=== PATIENT | female | born 1950 | race Caucasian/White ===

== ENCOUNTER 2016-08-03 23:20 | Emergency (ER) | payer OTHER ==
[2016-08-03 23:57] LABS: MANUAL DIFF NEEDED? NO
[2016-08-04 00:01] LABS: BASO% 0.6 % (0.0-0.8); EOS# 0.08 X1000 (0.0-0.7); EOS% 1.3 % (0.0-10.0); HEMATOCRIT 39.2 % (37.0-47.0); HEMOGLOBIN 13.6 g/dL (12.0-16.0); IMM GRAN# 0.02 X1000 (0.0-0.04); IMM GRAN% 0.3 % (0.0-0.5); LYMPH# 1.02 X1000 (1.2-3.4); MCH 30.1 PG (27-31); MCHC 34.7 g/dL (33-37); MCV 86.7 FL (81-99); MONO# 0.56 X1000 (0.11-0.59); MONO% 8.8 % (1.7-9.3); MPV 10.3 FL (7.4-10.4); PLT 318 X1000 (130-400); RBC 4.52 XMIL (4.2-5.4)
[2016-08-04] MEDS ORDERED: ROCEPHIN IM ONE (00:16)
[2016-08-04] MEDS ORDERED: XYLOCAINE-MPF 1% INJ ONE (00:16)
[2016-08-04] MEDS ORDERED: DUONEB (A & A) INH ONE (00:16)
[2016-08-04 00:27] LABS: AGAP 17; ALBUMIN 4.7 g/dL (3.5-5.0); ALKALINE PHOSPHATASE 91 U/L (32-104); BUN 11 mg/dL (8-22); CALCIUM 8.8 mg/dL (8.8-10.2); CHLORIDE 97 mmol/L (98-107); COSMO 277; GOT 21 U/L (10-30); GPT 23 U/L (10-36); MAGNESIUM 2.2 mg/dL (1.5-2.7); POTASSIUM 3.4 mmol/L (3.5-5.1); SODIUM 138 mmol/L (136-145); TCO2 24 mmol/L (25-35); TOTAL BILIRUBIN 0.32 mg/dL (0.20-1.00); TOTAL PROTEIN 7.9 g/dL (6.3-8.3)
[2016-08-04] MEDS ORDERED: DECADRON IM ONE (00:36)
--- NOTE | 2016-08-04 00:40 | PROVIDER DOCUMENTATION ---
HPI-Respiratory General - General Chief Complaint: General Adult Stated Complaint: COUGH, CONGESTION Time Seen by Provider: 08/03/16 23:56 Source: patient Allergies/Adverse Reactions: Patient Allergies Allergy/AdvReac Type Severity Reaction Status Date / Time Sulfa (Sulfonamide Allergy HIVES Verified 08/03/16 23:32 Antibiotics) Home Medications: Home Medication List Medication Instructions Recorded Confirmed Last Taken Type Atorvastatin Calcium [Lipitor] 20 mg PO HS 08/03/16 08/03/16 08/03/16 20:00 History Benazepril/Hydrochlorothiazide 1 tab PO DAILY 08/03/16 08/03/16 08/03/16 20:00 History [Benazepril-Hctz 10-12.5 mg Tab] Albuterol Sulfate [Albuterol 18 gm IH 3-4XDAY PRN PRN #1 08/04/16 Unknown Rx Sulfate Hfa] hfa.[email or web address] Levofloxacin [Levaquin] 750 mg PO DAILY #7 tablet 08/04/16 Unknown Rx Methylprednisolone [Medrol Dosepak] 4 mg PO DIRECTED #1 package 08/04/16 Unknown Rx - History of Present Illness-Resp Nature of Presenting Problem: Pt is a 66 yof who presents to ER with CC of cough and congestion that started yesterday. Pt reports that it became significantly worse today and when she would cough, it felt as though her throat was closing.Pt also complains of post- nasal drip. Quality of Pain: reports: none Severity in ED: reports: moderate Onset/Duration: reports: 24 hours ago Timing: reports: still present, getting worse Cough Quality/Degree: reports: mild Associated Symptoms: reports: cough, hurts to breathe, nasal drainage, shortness of breath, sinus pain, short of breath, sore throat. denies: chest pain/soreness, sweaty, wheezing Review of Systems - Adult - REVIEW OF SYSTEMS - ADULT Constitutional: denies: chills, fever, fatique, night sweats, weight gain, weight loss Eyes: reports: no symptoms reported Ears, Nose, Mouth & Throat: reports: sinus problem (nasal drip), throat pain. denies: ear discharge, ear pain, nose pain, loose teeth, hoarseness, throat swelling Cardiovascular: denies: chest pain, edema, heart murmur, irregular heart rate, orthopnea, palpitations, poor circulation, PND, syncope Respiratory: reports: cough, dyspnea on exertion, shortness of breath, wheezing . denies: excessive sputum production, hemoptysis, pleurisy Gastrointestinal: reports: no symptoms reported Genitourinary: reports: no symptoms reported Musculoskeletal: reports: no symptoms reported Integumentary: reports: no symptoms reported Neurological: reports: no symptoms reported Psychiatric: reports: no symptoms reported Endocrine: reports: no symptoms reported Hematologic/Lymphatic: reports: no symptoms reported Allergic/Immunologic: reports: no symptoms reported All Other Systems: Reviewed and Negative Past History - Adult - PAST MEDICAL HISTORY-ADULT Review of Records: reports: Nursing Assessment Review, Medications Reviewed - IMMUNIZATION STATUS Childhood Immunizations: See Nurse Assessment Flu Vaccine: See Nurse Assessment Physical Exam-General - PHYSICAL EXAM-ADULT Initial Vital Signs Reviewed: Yes - CONSTITUTIONAL General Appearance: appears well, alert, mild distress. negative: no apparent distress, cachetic, obese, thin, anxious, lethargic, slow to respond, obtunded, combative - HEAD, EARS, NOSE, MOUTH & THROAT HENMT: pharyngeal erythema, other (post-nasal drip). negative: pharynx normal, tonsillar exudate - RESPIRATORY Respiratory: chest non-tender, lungs clear, normal breath sounds. negative: respiratory distress, decreased breath sounds, wheezing - CARDIOVASCULAR Cardiovascular: normal peripheral pulses, regular rate, rhythm. negative: bradycardia, tachycardia, irregularly irregular - LYMPHATIC Lymphatic: no adenopathy. negative: axilla node tender, cervical node tenderness, inguinal node tender - NEUROLOGIC Neurologic: grossly normal, no motor/sensory deficits - PSYCHIATRIC Psych/Mental Status: normal mood/affect, normal thought content, normal thought process, oriented x 3 Progress - PLAN OF CARE/RESULTS Progress/Plan/Lab Results: Vital Signs - 24 hr 08/03/16 23:26 Temperature 100.4 F H Pulse Rate 113 H Respiratory 24 Rate Blood Pressure 183/67 O2 Sat by Pulse 99 Oximetry Orders Category Date Time Status cxr [CHEST-2 VIEWS] [RAD] Stat Exams 08/03/16 23:38 Taken BLOOD CULTURE [BLDCUL] Stat Lab 08/03/16 23:55 Ordered CBC WITH ELECTRONIC DIFF [HEME] Stat Lab 08/03/16 23:39 Completed CMP [COMPREHENSIVE METABOLIC PANEL] [CHEM] Stat Lab 08/03/16 23:39 Completed Flu Swab [INFLUENZA SCREEN A/B] Stat Lab 08/03/16 23:39 Completed MAGNESIUM [CHEM] Stat Lab 08/03/16 23:39 Completed PTT [COAG] Stat Lab 08/04/16 00:07 Ordered Strep [DIRECT STREP] Stat Lab 08/04/16 00:25 Received TROPONIN T Stat Lab 08/03/16 23:39 Completed URINALYSIS [URINALYSIS] Stat Lab 08/03/16 23:55 Uncollected Albuterol 2.5MG/Ipratrop 0.5MG [Duoneb (A & A)] Med 08/04/16 00:16 Discontinued 3 ml INH NOW ONE CefTRIAXONE [Rocephin] Med 08/04/16 00:16 Discontinued 1 gm IM NOW ONE Dexamethasone [Decadron] Med 08/04/16 00:36 Discontinued 10 mg IM NOW ONE Lidocaine 1% Pf [Xylocaine-Mpf 1%] Med 08/04/16 00:16 Discontinued 5 ml INJ NOW ONE Aerosol Treatments Routine Oth 08/04/16 00:16 Active Aerosol Treatments Stat Oth 08/04/16 00:16 Active EKG [EKG] Stat Ther 08/03/16 23:40 Ordered Laboratory Tests 08/03/16 08/03/16 08/03/16 23:39 23:39 23:39 WBC 6.36 RBC 4.52 Hgb 13.6 Hct 39.2 MCV 86.7 MCH 30.1 MCHC 34.7 RDW Std Deviation 13.6 Plt Count 318 MPV 10.3 Immature Gran % (Auto) 0.3 Neut % (Auto) 73.0 Lymph % (Auto) 16.0 L [place] % (Auto) 8.8 Eos % (Auto) 1.3 Baso % (Auto) 0.6 Immature Gran # (Auto) 0.02 Neut # (Auto) 4.64 Lymph # (Auto) 1.02 L [place] # (Auto) 0.56 Eos # (Auto) 0.08 Baso # (Auto) 0.04 Sodium 138 Potassium 3.4 L Chloride 97 L Carbon Dioxide 24 L Anion Gap 17 BUN 11 Creatinine 0.7 Estimated GFR/1.73 m2 > 60 BUN/Creatinine Ratio 16 Glucose 126 H Calculated Osmolality 277 Calcium 8.8 Magnesium 2.2 Total Bilirubin 0.32 AST 21 ALT 23 Alkaline Phosphatase 91 Troponin T < 0.010 Total Protein 7.9 Albumin 4.7 Globulin 3.2 Albumin/Globulin Ratio 1.5 - XRAY 1 XRAY: Bilateral XRAY Study: Chest Impression: See EMR Report XRAY Interpretation: Bronchitis Departure - Departure Time of Disposition Order: 00:40 DIAGNOSIS: Bronchitis Disposition: HOME 01 Certified Medical Emergency: Emergent Condition: Stable Additional Instructions: ED Follow Up Instructions: You have been treated by a care provider in the Emergency Department. These instructions are being provided to you so you can have an understanding of how to care for yourself upon discharge. Upon discharge from the Emergency Department, you are responsible for making arrangements for follow-up care by a physician of your choice. Take all prescribed medications as directed. Return to the Emergency Department immediately for any new or worsening symptoms. You may call the Physician Referral phone number at [phone] to obtain a list of Physicians who are taking new patients. Prescriptions: Albuterol Sulfate [Albuterol Sulfate Hfa] 18 gm IH 3-4XDAY PRN PRN #1 [email or web address] PRN Reason: Wheezing Levofloxacin [Levaquin] 750 mg PO DAILY #7 tablet Methylprednisolone [Medrol Dosepak] 4 mg PO DIRECTED #1 package Attestation - Scribe Verification/Attestation Scribe:: Hector Love Acting as Scribe for:: Logan Aden Scribe documention review:: This chart was documented by a scribe and accurately reflects the service the provider performed and the decisions made by the provider.
[2016-08-04 02:08] VITALS: BP 151/62
--- NOTE | 2016-08-04 13:13 | Diag Imaging Result Document ---
PROCEDURE NAME: CHEST-2 VIEWS - 08/03/2016 CHEST, 2 VIEWS: COMPARISON: No comparison exam. FINDINGS: Heart size is normal. The lungs appear clear. There is no pleural effusion or pneumothorax identified. IMPRESSION: No evidence of acute disease.
--- NOTE | 2016-08-06 10:47 | EKG Report ---
Test Performed on : 08/03/2016 11:49:11 PM Test Reason : weakness Blood Pressure : / mmHG Vent. Rate : 108 BPM Atrial Rate : 108 BPM P-R Int : 186 ms QRS Dur : 092 ms QT Int : 336 ms P-R-T Axes : 035 051 023 degrees QTc Int : 450 ms Sinus tachycardia. Otherwise normal ECG No previous ECGs available Unconfirmed Result
== END 2016-08-04 02:07 | disposition home or self-care (01) ==
LOC: ED 23:20
DX: J40 Bronchitis, not specified as acute or chronic (principal); R05 Cough; R09.81 Nasal congestion; R09.82 Postnasal drip; R07.1 Chest pain on breathing; R06.02 Shortness of breath; J34.89 Other specified disorders of nose and nasal sinuses; J02.9 Acute pharyngitis, unspecified; R06.00 Dyspnea, unspecified; R06.2 Wheezing; Z79.899 Other long term (current) drug therapy
CPT/HCPCS: 36415; 71020; 80053; 83735; 84484; 85025; 85730; 87081; 87430; 87804; 93005; 96372; J0696